=== PATIENT | male | born 1990 | race Caucasian/White ===

== ENCOUNTER 2017-03-26 19:03 | Emergency (ER) | payer BC, OTHER ==
[2017-03-26 19:16] VITALS: BP 132/67
--- NOTE | 2017-03-26 19:26 | EDM.PDOC ---
ED HPI GENERAL MEDICAL PROBLEM - General Chief Complaint: Lower Extremity Injury/Pain Stated Complaint: POSS RIGHT KNEE INJURY Time Seen by Provider: 03/26/17 19:09 Source of Information: Reports: Patient History Limitations: Reports: No Limitations - History of Present Illness INITIAL COMMENTS - FREE TEXT/NARRATIVE: This is a 26-year-old male. Today this morning he was sledding with his kids and apparently fell off the sled and hit his right knee. Initially he can move the knee and nose, sore and painful but as the day progressed the tenderness and the pain seems to have gotten worse now he is not able to bear weight on that right knee and he comes to the ER for evaluation. No significant swelling of the knee itself and he does have an abrasion over the patella or tibial tendon area where he seems to be hurting the worst. He will not allow me to actually examine the knee as far as anterior and posterior drawer signs and/ or meniscus examination. He denies any other trauma. The patient indicates he' s got a history of patellofemoral syndrome. Right Knee Pain Score (Numeric/FACES): 9 - Related Data Allergies Allergy/AdvReac Type Severity Reaction Status Date / Time amoxicillin Allergy Swelling Verified 04/16/16 04:29 Home Meds: Home Meds Hydrocodone/Acetaminophen [Hydrocodon-Acetaminophen 5-325] 1 each PO Q6H PRN # 12 tablet 03/26/17 [Rx] Rizatriptan Benzoate [Rizatriptan] 5 mg PO DAILY 03/26/17 [History] Past Medical History Musculoskeletal History: Reports: Back Pain, Chronic Other Musculoskeletal History: bulging disc Neurological History: Reports: Migraines - Past Surgical History Musculoskeletal Surgical History: Reports: Other (See Below) Other Musculoskeletal Surgeries/Procedures:: tendon issues too knee Social & Family History - Tobacco Use Smoking Status *Q: Current Every Day Smoker Years of Tobacco use: 10 Packs/Tins Daily: 0.5 Used Tobacco, but Quit: No Second Hand Smoke Exposure: No - Caffeine Use Caffeine Use: Reports: Soda, Tea - Recreational Drug Use Recreational Drug Type: Reports: Marijuana/Hashish Recreational Drug Use Frequency: Daily Review of Systems - Review of Systems Review Of Systems: See Below Constitutional: Denies: Chills, Fever Eyes: Reports: No Symptoms Ears: Reports: No Symptoms Nose: Reports: No Symptoms Mouth/Throat: Reports: No Symptoms Respiratory: Reports: No Symptoms Cardiovascular: Reports: No Symptoms GI/Abdominal: Reports: No Symptoms Genitourinary: Reports: No Symptoms Musculoskeletal: Reports: Other (As per history of present illness) Skin: Reports: Other (As per history of present illness) Neurological: Reports: No Symptoms Psychiatric: Reports: No Symptoms ED EXAM, GENERAL - Physical Exam Exam: See Below Exam Limited By: No Limitations General Appearance: Alert, WD/WN, Mild Distress Eye Exam: Bilateral Eye: Normal Inspection Ears: Normal External Exam Nose: Normal Inspection Throat/Mouth: Normal Inspection, Normal Lips, Normal Voice Head: Normocephalic Neck: Supple Respiratory/Chest: No Respiratory Distress Back Exam: Full Range of Motion Neurological: Other (Right knee shows a dollar coin size abrasion over the mid patella tibial tendon, very tender on palpation, he is not allowing me to move the patella, the knee itself shows minimal effusion, the joint lines are not particularly tender, he got some soreness in the posterior knee on palpation but no swelling, the quadriceps and retinaculum are also sore on palpation but no swelling is noted, he will not allow me to test the anterior and posterior drawer sign or manipulate the knee to determine if there is a meniscus injury, there is no other acute lower extremity injury there is no upper extremity injury) Psychiatric: Normal Affect, Normal Mood Skin Exam: Warm, Dry Course - Vital Signs Last Recorded V/S: Last Vital Signs Temp 97.7 F 03/26/17 19:14 Pulse 73 03/26/17 19:14 Resp 20 03/26/17 19:14 BP 132/67 03/26/17 19:14 Pulse Ox 100 03/26/17 19:14 - Orders/Labs/Meds Orders: Active Orders 24 hr Category Date Time Status Knee 3V Rt [CR] Stat Exams 03/26/17 19:21 Taken - Radiology Interpretation Free Text/Narrative:: X-rays the right knee show no acute fractures - Re-Assessments/Exams Free Text/Narrative Re-Assessment/Exam: 03/26/17 19:58 Spoke to the patient regarding the x-ray results. We placed a knee brace on him as well as gave him crutches. I'll have him off work till Tuesday sweeping and follow-up with his family doctor Tuesday or Tuesday for reevaluation. Again he is not willing for me to test his internal ligaments or the menisci due to his pain. Departure - Departure Time of Disposition: 20:01 Disposition: Home, Self-Care 01 Condition: Good Clinical Impression: Contusion of right knee Qualifiers: Encounter type: initial encounter Qualified Code(s): S80.01XA - Contusion of right knee, initial encounter Sprain of right knee Qualifiers: Encounter type: initial encounter Involved ligament of knee: unspecified ligament Qualified Code(s): S83.91XA - Sprain of unspecified site of right knee , initial encounter - Discharge Information Prescriptions: Hydrocodone/Acetaminophen [Hydrocodon-Acetaminophen 5-325] 1 each PO Q6H PRN # 12 tablet PRN Reason: Pain Referrals: Ann-Marie Shelley DO [Primary Care Provider] - Forms: ED Department Discharge, ED Return to Work/School Form Additional Instructions: Wear the knee brace when you're up and about but make sure you take it off at nighttime when you sleep otherwise your lower leg will swell, usual crutches at all times when you're up, follow up with her family doctor Tuesday or Tuesday for reevaluation of her knee and allow them to check the ligaments of your knee see if there is any injury, take the medication for pain as prescribed, return to the ER if needed - My Orders Last 24 Hours: My Active Orders 03/26/17 19:21 Knee 3V Rt [CR] Stat - Assessment/Plan Last 24 Hours: My Active Orders 03/26/17 19:21 Knee 3V Rt [CR] Stat
--- NOTE | 2017-03-28 07:38 | CR ---
Right knee: AP, lateral and sunrise patellar views of the right knee were obtained. Comparison: No previous study. Medial and lateral joints are maintained in height. No joint effusion is seen. Patellofemoral joint is within normal limits. Impression: 1. No abnormality is seen on three-view right knee exam. Diagnostic code #1
== END 2017-03-26 20:15 | disposition home or self-care (01) ==
LOC: JD.ED 19:03
DX: S83.91XA Sprain of unspecified site of right knee, initial encounter (principal); S80.01XA Contusion of right knee, initial encounter; F17.210 Nicotine dependence, cigarettes, uncomplicated; Z88.1 Allergy status to other antibiotic agents; W17.89XA Other fall from one level to another, initial encounter
CPT/HCPCS: 73562-26-RT; 73562-RT; 99283

== ENCOUNTER 2018-07-10 05:36 | Emergency (ER) | payer BC, OTHER ==
[2018-07-10 05:46] VITALS: BP 127/81
[2018-07-10] MEDS ORDERED: diphenhydrAMINE 50 MG/ML SDV IVPUSH ONE (05:53)
[2018-07-10] MEDS ORDERED: Metoclopramide 10 MG/2 ML SDV IVPUSH ONE (05:53)
--- NOTE | 2018-07-10 05:59 | EDM.PDOC ---
ED HPI GENERAL MEDICAL PROBLEM - General Chief Complaint: Headache Stated Complaint: MIGRAINE Time Seen by Provider: 07/10/18 05:53 Source of Information: Reports: Patient History Limitations: Reports: No Limitations - History of Present Illness INITIAL COMMENTS - FREE TEXT/NARRATIVE: 28-year-old male presents to the ED with severe left hemicranial headache mostly retro-orbital and left temporal. Patient states he does suffer from migraine headaches on an intermittent basis. This headache started yesterday morning and was present when he awoke. Used Imitrex 100 mg tablet 2 yesterday without much relief of the headache. Associated intermittent nausea. He did need or drink very much yesterday. Last evening he had only saltine crackers. Was hardly able to sleep at all due to the intensity of the pain. Pain is described as constant throbbing and pulsating left kathy-cranium. It's no different than when his expression the past. He is very photophobic. He did drive himself to the hospital as he had no other recourse. Associated nausea without any vomiting. Onset: Sudden Onset Date: 07/09/18 Duration: Hour(s): (Awoke with a headache yesterday morning that is gradually intensified over the last 24 hours to 4 hours) Location: Reports: Head (Left hemicranial headache particularly behind his left eye and left temporal scalp) Quality: Reports: Ache ( typical of what he 6 beers in the past.), Pressure, Throbbing, Other Severity: Severe (Ulcerating to 10) Improves with: Reports: None Worsens with: Reports: None Context: Reports: Other (Spontaneous occurrence with no recent closed head injuries.). Denies: Activity, Exercise, Lifting, Sick Contact, Trauma Associated Symptoms: Reports: Loss of Appetite, Malaise, Nausea/Vomiting. 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 (see below) (Took Imitrex 100 mg 2 yesterday with Motrin.) Headache Pain Score (Numeric/FACES): 6 - Related Data Allergies Allergy/AdvReac Type Severity Reaction Status Date / Time amoxicillin Allergy Swelling Verified 07/10/18 05:46 Home Meds: Home Meds Ketorolac [Toradol] 10 mg PO Q6H PRN #5 tab 07/10/18 [Rx] Metoclopramide HCl [Reglan] 10 mg PO Q6H PRN #5 tablet 07/10/18 [Rx] SUMAtriptan [Imitrex] 50 mg PO BID PRN 07/10/18 [History] Past Medical History Musculoskeletal History: Reports: Back Pain, Chronic Other Musculoskeletal History: bulging disc Neurological History: Reports: Migraines - Past Surgical History Musculoskeletal Surgical History: Reports: Other (See Below) Other Musculoskeletal Surgeries/Procedures:: tendon issues too knee, pins to right hand Social & Family History - Family History Family Medical History: Noncontributory - Tobacco Use Smoking Status *Q: Current Every Day Smoker Years of Tobacco use: 12 Packs/Tins Daily: 0.2 - Caffeine Use Caffeine Use: Reports: Soda - Recreational Drug Use Recreational Drug Use: No - Living Situation & Occupation Living situation: Reports: Occupation: Employed ED ROS GENERAL - Review of Systems Review Of Systems: See Below Constitutional: Reports: Weakness, Fatigue, Decreased Appetite (Not being able sleep). Denies: Fever, Chills, Malaise HEENT: Reports: No Symptoms Respiratory: Reports: No Symptoms Cardiovascular: Reports: No Symptoms Endocrine: Reports: No Symptoms GI/Abdominal: Reports: Nausea (Due to the intensity of the headache) Musculoskeletal: Reports: No Symptoms Skin: Reports: No Symptoms Neurological: Reports: Headache Psychiatric: Reports: No Symptoms (See history present illness) Hematologic/Lymphatic: Reports: No Symptoms Immunologic: Reports: No Symptoms - Physical Exam Exam: See Below Exam Limited By: No Limitations General Appearance: Alert, WD/WN, Moderate Distress (He is very photophobic. Examination a darkened room. He still preferred to keep his eyes closed.), Other (Vital signs are normal with BP 127/81. Heart rate is 57 in sinus. Temperatures 36.5.) Eye Exam: Bilateral Eye: Normal Inspection, PERRL, Other (Very photosensitive.) Throat/Mouth: Normal Inspection, Normal Lips, Normal Oropharynx, Other (Tongue is mildly dry) Head Exam: Atraumatic, Normocephalic, Other Neck: Normal Inspection (Pain along the superficial left temporal artery with no nodularity appreciated.), Supple, Non-Tender, Full Range of Motion. No: Lymphadenopathy (L), Lymphadenopathy (R) Respiratory/Chest: No Respiratory Distress, Lungs Clear, Normal Breath Sounds, No Accessory Muscle Use Neuro Exam (Abbreviated): Alert, Oriented, CN II-XII Intact, Normal Cognition, No Motor/Sensory Deficits Extremities: Normal Inspection, Normal Range of Motion, Non-Tender Psychiatric: Normal Mood, Flat Affect Skin Exam: Warm, Dry, Intact, Normal Color, No Rash Course - Vital Signs Last Recorded V/S: Last Vital Signs Temp 36.5 C 07/10/18 05:44 Pulse 57 L 07/10/18 05:44 Resp 16 07/10/18 05:44 BP 127/81 07/10/18 05:44 Pulse Ox 100 07/10/18 05:44 - Orders/Labs/Meds Orders: Active Orders 24 hr Category Date Time Status Dextrose 5%-0.9% NaCl [Dextrose 5%-Normal Saline] 1,000 Med 07/10/18 06:00 Active ml IV ASDIRECTED Ketorolac [Toradol] Med 07/10/18 06:00 Active 30 mg IVPUSH ONETIME Medication Orders Dextrose/Sodium Chloride (Dextrose 5%-Normal Saline) 1,000 mls @ 999 mls/hr IV ASDIRECTED YANNICK Last Admin: 07/10/18 06:13 Dose: 999 mls/hr Ketorolac Tromethamine (Toradol) 30 mg IVPUSH ONETIME YANNICK Last Admin: 07/10/18 06:06 Dose: 30 mg Meds: Medications Generic Name Dose Route Start Last Admin Trade Name Freq PRN Reason Stop Dose Admin Dextrose/Sodium Chloride 1,000 mls @ 999 mls/hr 07/10/18 06:00 07/10/18 06:13 Dextrose 5%-Normal Saline IV 999 mls/hr ASDIRECTED YANNICK Administration Ketorolac Tromethamine 30 mg 07/10/18 06:00 07/10/18 06:06 Toradol IVPUSH 30 mg ONETIME YANNICK Administration Discontinued Medications Generic Name Dose Route Start Last Admin Trade Name Freq PRN Reason Stop Dose Admin Diphenhydramine HCl 25 mg 07/10/18 05:53 07/10/18 06:10 Benadryl IVPUSH 07/10/18 05:54 25 mg ONETIME ONE Administration Metoclopramide HCl 10 mg 07/10/18 05:53 07/10/18 06:08 Reglan IVPUSH 07/10/18 05:54 10 mg ONETIME ONE Administration - Radiology Interpretation Free Text/Narrative:: 28-year-old male presents the ER with a diffuse left hemicranial headache compatible with migraine. He suffers from intermittent migraine headaches most often on the left side of his head. He woke with this headache yesterday morning and it has persisted and intensified in spite of using Imitrex 100 mg tablets 2 in the last 24 hours. Nausea without vomiting. He is very photosensitive on examination. Neurological exam is otherwise normal. He drove himself to the hospital. Plan IV D5 normal saline at open since he had very little to eat or drink yesterday. Will be given Toradol 30 mg IV with Reglan 10 mg IV and Benadryl 25 mg IV. - Re-Assessments/Exams Free Text/Narrative Re-Assessment/Exam: 07/10/18 06:36 patient is anxious to leave the department. He has a youngster at home that has to get ready for school. He states the headache is easing up it 's about 30% better than it was and he is able to open his eyes and is not so photosensitive. I will therefore discharge him home. I did write a prescription for Toradol 10 mg tablets and Reglan 10 mg tablets to be taken one of each every 6 hours as needed for migraine headache relief. Departure - Departure Time of Disposition: 06:31 Disposition: Home, Self-Care 01 Clinical Impression: Migraine Qualifiers: Migraine type: without aura Status migrainosus presence: without status migrainosus Intractability: not intractable Qualified Code(s): G43.009 - Migraine without aura, not intractable, without status migrainosus - Discharge Information *PRESCRIPTION DRUG MONITORING PROGRAM REVIEWED*: Not Applicable *COPY OF PRESCRIPTION DRUG MONITORING REPORT IN PATIENT SHANNON: Not Applicable Prescriptions: Ketorolac [Toradol] 10 mg PO Q6H PRN #5 tab PRN Reason: Migraine headache Metoclopramide HCl [Reglan] 10 mg PO Q6H PRN #5 tablet PRN Reason: migraine headache Referrals: Maile Woods PA-C [Primary Care Provider] - Forms: ED Department Discharge, ED Return to Work/School Form Additional Instructions: Evaluation in the emergency room today in regards to left hemicranial headache compatible with migraine. You've experienced this many times in the past. You' re treated with intravenous fluids. You are given Toradol 30 mg IV with Reglan 10 mg IV and Benadryl 25 mg IV for reduction of headache. Really home to bed and sleep for 3-4 hours and break the headache cycle. I have written a prescription for Reglan 10 mg tablets and Toradol 10 mg tablets. 5 of each. Suggest trying one of each for headache relief at home on an as-needed basis to see if you can get control of the migraine before you have to come to the hospital. - My Orders Last 24 Hours: My Active Orders 07/10/18 06:00 Dextrose 5%-0.9% NaCl [Dextrose 5%-Normal Saline] 1,000 ml IV ASDIRECTED Ketorolac [Toradol] 30 mg IVPUSH ONETIME - Assessment/Plan Last 24 Hours: My Active Orders 07/10/18 06:00 Dextrose 5%-0.9% NaCl [Dextrose 5%-Normal Saline] 1,000 ml IV ASDIRECTED Ketorolac [Toradol] 30 mg IVPUSH ONETIME
[2018-07-10] MEDS ORDERED: Ketorolac 30 MG/ML SDV IVPUSH SCH (06:00)
[2018-07-10] MEDS ORDERED: Dextrose 5%-0.9% NaCl 1,000 ML IV SCH (06:00)
== END 2018-07-10 06:40 | disposition home or self-care (01) ==
LOC: JD.ED 05:36
DX: G43.009 Migraine without aura, not intractable, without status migrainosus (principal); F17.210 Nicotine dependence, cigarettes, uncomplicated; Z88.1 Allergy status to other antibiotic agents; Z79.899 Other long term (current) drug therapy
CPT/HCPCS: 96374; 96375; 99283; J1200; J1885; J2765; J7042; 99284

== ENCOUNTER 2019-03-15 14:07 | Emergency (ER) | payer BC, OTHER ==
[2019-03-15] MEDS ORDERED: HYDROmorphone 1 MG/ML Syringe IM ONE (14:28)
[2019-03-15] MEDS ORDERED: Ondansetron 4 MG Tab.DIS PO ONE (14:28)
[2019-03-15 14:30] VITALS: BP 151/100; PULSE 64
--- NOTE | 2019-03-15 14:37 | EDM.PDOC ---
ED HPI GENERAL MEDICAL PROBLEM - General Chief Complaint: Upper Extremity Injury/Pain Stated Complaint: LEFT HAND INJURY Time Seen by Provider: 03/15/19 14:20 Source of Information: Reports: Patient, RN Notes Reviewed History Limitations: Reports: No Limitations - History of Present Illness INITIAL COMMENTS - FREE TEXT/NARRATIVE: Patient is a 28-year-old male who presents to the ED for evaluation of a left hand injury. The patient states that about half hour prior to arrival to the ED , he was using a chisel to get a pin out of something that was stuck, and the hammer slipped off the chisel and hit his left hand near the base of his thumb. There is a reddened area to the base of his thumb, he states any movement that he tries to make with his left and hurts the hand and the fingers. He denies any pain into the wrist or further radiation up to the elbow. He was able to get his ring off, he has used ice to the area prior to arrival, he did not take any pain medications. He denies any past medical history other than migraines. He would rate his pain at an 8 out of 10. Treatments PRODUCTION SAMPLER: Reports: Other (see below) Other Treatments PRODUCTION SAMPLER: ice Left Hand Pain Score (Numeric/FACES): 8 - Related Data Allergies Allergy/AdvReac Type Severity Reaction Status Date / Time amoxicillin Allergy Swelling Verified 07/10/18 05:46 Home Meds: Home Meds Ketorolac [Toradol] 10 mg PO Q6H PRN #5 tab 07/10/18 [Rx] Metoclopramide HCl [Reglan] 10 mg PO Q6H PRN #5 tablet 07/10/18 [Rx] SUMAtriptan [Imitrex] 50 mg PO BID PRN 07/10/18 [History] Amitriptyline [Elavil] 25 mg PO BEDTIME 03/15/19 [History] Past Medical History Musculoskeletal History: Reports: Back Pain, Chronic Other Musculoskeletal History: bulging disc Neurological History: Reports: Migraines - Past Surgical History Musculoskeletal Surgical History: Reports: Other (See Below) Other Musculoskeletal Surgeries/Procedures:: tendon issues too knee, pins to right hand Social & Family History - Family History Family Medical History: Noncontributory - Tobacco Use Smoking Status *Q: Current Every Day Smoker Years of Tobacco use: 10 Packs/Tins Daily: 0.5 - Caffeine Use Caffeine Use: Reports: Soda, Tea - Recreational Drug Use Recreational Drug Use: No - Living Situation & Occupation Living situation: Reports: Occupation: Employed Review of Systems - Review of Systems Review Of Systems: See Below Constitutional: Reports: No Symptoms Eyes: Reports: No Symptoms Ears: Reports: No Symptoms Nose: Reports: No Symptoms Mouth/Throat: Reports: No Symptoms Respiratory: Reports: No Symptoms Cardiovascular: Reports: No Symptoms GI/Abdominal: Reports: No Symptoms Genitourinary: Reports: No Symptoms Musculoskeletal: Reports: Hand Pain (Left hand) Skin: Reports: No Symptoms Neurological: Denies: Numbness, Tingling Psychiatric: Reports: No Symptoms ED EXAM, GENERAL - Physical Exam Exam: See Below Exam Limited By: No Limitations General Appearance: Alert, WD/WN, No Apparent Distress (pt appears to be in pain , he is holding hand above heart level) Respiratory/Chest: No Respiratory Distress, Lungs Clear, Normal Breath Sounds, No Accessory Muscle Use, Chest Non-Tender Cardiovascular: Normal Peripheral Pulses, Regular Rate, Rhythm, No Murmur Peripheral Pulses: 3+: Radial (L), Radial (R) Extremities: Normal Capillary Refill, Other (Left hand with erythematous area to base of left thumb by web spacing between the thumb and 2nd digit. This area is tender to palpation. 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, and it is painful to extend his fingers fully.) Neurological: Alert, Oriented, Normal Cognition, No Motor/Sensory Deficits Psychiatric: Normal Affect, Normal Mood Skin Exam: Warm, Dry, Intact, Normal Color, No Rash Course - Vital Signs Last Recorded V/S: Last Vital Signs Temp 97.9 F 03/15/19 14:28 Pulse 64 03/15/19 14:28 Resp 20 03/15/19 14:28 BP 151/100 H 03/15/19 14:28 Pulse Ox 100 03/15/19 14:28 - Orders/Labs/Meds Orders: Active Orders 24 hr Category Date Time Status Hand Comp Min 3V Lt [CR] Stat Exams 03/15/19 14:27 Ordered Meds: Medications Discontinued Medications Generic Name Dose Route Start Last Admin Trade Name Freq PRN Reason Stop Dose Admin Hydromorphone HCl 1 mg 03/15/19 14:28 03/15/19 14:45 Dilaudid IM 03/15/19 14:29 1 mg ONETIME ONE Administration Ondansetron HCl 4 mg 03/15/19 14:28 03/15/19 14:44 Zofran Odt PO 03/15/19 14:29 4 mg ONETIME ONE Administration - Re-Assessments/Exams Free Text/Narrative Re-Assessment/Exam: 03/15/19 14:44 Patient presents to the ED for evaluation of a left hand injury. I did order 1 mg IM Dilaudid with 4 mg Zofran ODT for initial pain relief, and a left hand x- rays for further evaluation. 03/15/19 16:02 Patient's hand x-ray is done, and there is no obvious fracture or bony deformity noted, by myself or Dr. Chavez, official radiology read is pending. We'll discharge the patient home with general recommendations. Departure - Departure Time of Disposition: 16:03 Disposition: Home, Self-Care 01 Condition: Fair Clinical Impression: Injury of left hand Qualifiers: Encounter type: initial encounter Qualified Code(s): S69.92XA - Unspecified injury of left wrist, hand and finger(s), initial encounter - Discharge Information *PRESCRIPTION DRUG MONITORING PROGRAM REVIEWED*: No *COPY OF PRESCRIPTION DRUG MONITORING REPORT IN PATIENT SHANNON: No Instructions: Crush Injury of the Hand, [id number] Referrals: Maile Woods PA-C [Primary Care Provider] - Forms: ED Department Discharge Additional Instructions: You have been evaluated in the ED for your left hand injury. Your x-ray demonstrated no obvious fracture or bony abnormality. Please use ice as tolerated to the affected area. Please try to elevate the affected area to relieve swelling. You may obtain a wrist splint at any retailer like [employer] or a pharmacy for further pain relief or you may Hany wrap the area to help with compression of the area to help reduce swelling. You may take Tylenol 500 mg or ibuprofen 600mg q6 hrs for pain relief. Please do so until you have a tolerable level of pain with activity. Do not exceed 4000mg Tylenol or 3200mg ibuprofen in a 24 hour time period. Recommend that if the range of motion of your Left hand does not start to come back within a few days' time, that you follow up with orthopedics, our orthopedic office number is [phone]. This would be for follow-up of your injury. Please return to ED if your symptoms should change or worsen. - My Orders Last 24 Hours: My Active Orders 03/15/19 14:27 Hand Comp Min 3V Lt [CR] Stat - Assessment/Plan Last 24 Hours: My Active Orders 03/15/19 14:27 Hand Comp Min 3V Lt [CR] Stat
--- NOTE | 2019-03-16 08:09 | CR ---
Left hand: Four views of left hand were obtained. Comparison: No prior hand exam. Small metallic foreign body is noted within the left 2nd finger at the level of the distal proximal phalanx. Joint spaces are preserved. No acute fracture or other bony abnormality is seen. Impression: 1. Small metallic foreign body as noted above. 2. Left hand exam is otherwise unremarkable. Diagnostic code #2
== END 2019-03-15 16:25 | disposition home or self-care (01) ==
LOC: JD.ED 14:07
DX: S69.92XA Unspecified injury of left wrist, hand and finger(s), initial encounter (principal); F17.210 Nicotine dependence, cigarettes, uncomplicated; Z88.1 Allergy status to other antibiotic agents; W27.0XXA Contact with workbench tool, initial encounter; Y93.89 Activity, other specified
CPT/HCPCS: 73130; 96372; 99283; A9270; J1170; 99282

== ENCOUNTER 2021-06-30 07:33 | Emergency (ER) | payer OTHER ==
[2021-06-30 07:47] VITALS: BP 134/87; PULSE 64
[2021-06-30] MEDS ORDERED: Ketorolac 15 MG/ML SDV IM ONE (07:56)
[2021-06-30] MEDS ORDERED: Lidocaine 1% 10 ML MDV INJECT ONE (08:45)
== END 2021-06-30 09:04 | disposition home or self-care (01) ==
LOC: JD.ED 07:33
DX: S61.215A Laceration without foreign body of left ring finger without damage to nail, initial encounter (principal); Z88.0 Allergy status to penicillin; W26.0XXA Contact with knife, initial encounter
CPT/HCPCS: 12001; 73130; 96372; 99283; J1885

== ENCOUNTER 2022-02-25 09:40 | Emergency (ER) | payer OTHER ==
[2022-03-03 21:02] VITALS: BP 148/84; PULSE 75
== END 2022-02-25 10:45 | disposition home or self-care (01) ==
LOC: JD.ED 09:40
DX: S39.012A Strain of muscle, fascia and tendon of lower back, initial encounter (principal); W18.40XA Slipping, tripping and stumbling without falling, unspecified, initial encounter
CPT/HCPCS: 99283